=== PATIENT | male | born 1980 | race Caucasian/White ===

== ENCOUNTER 2018-11-28 08:27 | Outpatient (CLI) | payer OTHER ==
--- NOTE | 2018-11-28 15:28 | MRI Report ---
Reason: PAIN IN RIGHT KNEE Procedure Date: 11/28/2018 Accession Number: [id number] / [id number] Procedure: MRI - Knee RT W/O CPT Code: FULL RESULT: EXAM: RIGHT KNEE MRI WITHOUT CONTRAST EXAM DATE: 11/28/2018 09:39 AM. CLINICAL HISTORY: PAIN IN RIGHT KNEE. COMPARISON: None. TECHNIQUE: Multiplanar, multisequence T1-weighted and fluid-sensitive sequences of the knee without contrast. Other: None. FINDINGS: Bones: Focal subcortical marrow edema mid medial femoral condyle.. Articular Cartilage: Severe chondromalacia medial trochlear groove. Severe focal chondromalacia mid medial femoral condyle. Medial Meniscus: The medial meniscus is intact. Lateral Meniscus: The lateral meniscus is intact. Cruciate Ligaments: The anterior and posterior cruciate ligaments are intact. Collateral Ligaments: The medial collateral and lateral collateral ligamentous structures are intact. Tendons: The quadriceps, patellar, semimembranosus, and popliteus tendons are unremarkable. Musculature: No edema or fatty atrophy. Other: Small joint fluid medial lateral patellar recesses. Small fluid collection gastrocnemius semimembranosus bursa. Suprapatellar recess 1 cm osseous body. Lateral patellofemoral compartment osseous body 1.8 cm (image 31 series 401). Additional lateral patellofemoral compartment 5 mm osseous body. The medial and lateral retinacula are intact. The subcutaneous tissues and fat pads are unremarkable. IMPRESSION: 1. Negative for meniscus tear or internal derangement. 2. Severe chondromalacia medial trochlear groove and severe chondromalacia mid medial femoral condyle. 3. Multiple osseous bodies lateral patellofemoral compartment. [facility] MUSCULOSKELETAL RADIOLOGY SECTION
== END 2018-11-28 08:28 | disposition home or self-care (01) ==
LOC: DI 08:27
PROVIDERS: ATTEND General Practice
DX: M94.261 Chondromalacia, right knee (principal); M23.41 Loose body in knee, right knee

== ENCOUNTER 2019-01-04 08:58 | Day surgery (SDC) | payer OTHER ==
[~2019-01-04 08:58] MED LIST: ceFAZolin 2 GM/50 ML 2 GM/50 ML BAG IV ONE
[2019-01-04] MEDS ORDERED: LACTATED RINGERS 1,000 ML IV ONE (09:20)
--- NOTE | 2019-01-04 09:51 | ANESTHESIA ---
Pre-Anesthesia VS, & Labs - Diagnosis right knee loose bodies - Procedure right knee arthroscopy loose body removal Vital Signs: Temp Pulse Resp BP Pulse Ox 36.2 C L 105 H 16 139/95 H 97 01/04/19 09:14 01/04/19 09:14 01/04/19 09:14 01/04/19 09:14 01/04/19 09:14 Height 5 ft 7 in Weight (kg) 93 kg - NPO >8 hours Home Medications and Allergies Home Medications: Ambulatory Orders amLODIPine [Norvasc] 5 mg PO DAILY 12/26/18 raNITIdine [Zantac] 150 mg PO DAILY 12/26/18 amLODIPine [Norvasc] 5 mg PO DAILY 12/26/18 raNITIdine [Zantac] 150 mg PO DAILY 12/26/18 Allergies/Adverse Reactions: Allergies Allergy/AdvReac Type Severity Reaction Status Date / Time No Known Drug Allergies Allergy Verified 12/26/18 14:56 Anes History & Medical History - Anesthetic History Anesthesia Complications: reports: No previous complications - Medical History Cardiovascular: reports: Hypertension Pulmonary: reports: Sleep apnea, CPAP use Gastrointestinal: reports: GERD (controlled with medications) Urinary: reports: None Neuro: reports: None Musculoskeletal: reports: None, Other Endocrine/Autoimmune: reports: None Blood Disorders: reports: None Skin: reports: None Smoking Status: Former smoker (Quit 1 year ago) Psychosocial: reports: No issues indicated - Surgical History Orthopedic: Arthroscopic surgery Exam General: Alert, Oriented x3, Cooperative, No acute distress Dental: WNL Mouth Openin Fingerbreadth Neck Mobility: Normal Mallampati classification: II Thyromental Distance: 4-6 cm Respiratory: Lungs clear, Normal breath sounds, No respiratory distress, No accessory muscle use Cardiovascular: Regular rate, Normal S1, Normal S2, No murmurs Mental/Cognitive Status: Alert/Oriented X3, Normal for patient Plan Anesthesia Type: General Consent for Procedure(s) Verified and Reviewed: Yes Code Status: Attempt Resuscitation ASA classification: 2-Mild systemic disease Is this case an emergency?: No
[2019-01-04] MEDS ORDERED: EPINEPHrine 1 MG/ML AMP ONE (10:28)
[2019-01-04] MEDS ORDERED: BUPIVACAINE 0.25% PF 10 ML VIAL ONE (10:29)
[2019-01-04] MEDS ORDERED: BUPIVACAINE 0.25% PF 10 ML VIAL SUBQ ONE ×2 (11:15)
[2019-01-04] MEDS ORDERED: ONDANSETRON 4 MG/2 ML VIAL IVP ONE (11:30)
[2019-01-04] MEDS ORDERED: LIDOCAINE-MPF 2% 5 ML VIAL IM ONE (11:30)
[2019-01-04] MEDS ORDERED: CEFAZOLIN IV ONE (11:30)
[2019-01-04] MEDS ORDERED: fentaNYL 100 MCG/2 ML VIAL IVP ONE (11:30)
[2019-01-04] MEDS ORDERED: PROPOFOL 200 MG/20 ML VIAL IVP ONE (11:30)
[2019-01-04] MEDS ORDERED: KETOROLAC 30 MG/ML VIAL IVP ONE (11:30)
[2019-01-04] MEDS ORDERED: ONDANSETRON 4 MG/2 ML VIAL IVP PRN (12:46)
[2019-01-04] MEDS ORDERED: oxyCODONE 5 MG TABLET PO PRN (12:46)
--- NOTE | 2019-01-04 12:53 | OPERATIVE REPORT ---
Operative Report - General Planned Procedure: Right knee arthroscopy, Loose body removal Pre-Op Diagnosis: Right knee intra-articular loose bodies Procedure Performed: Right knee arthroscopy, trochlear chondroplasty, medial femoral condyle chondroplasty, loose body removal Post Op Diagnosis: Right knee loose bodies, medial femoral condyle & trochlear chondromalacia - Procedure Note Primary Surgeon: MITCHELL VILLA Secondary Surgeon: LONNY RAMIREZ Anesthesia Provider: Jen BURTON Anesthesia Technique: General ET tube Pathology: Right knee loose bodies sent for permanent pathology Estimated Blood Loss (mL): 5 - Other Other Information/Narrative: Procedure: Right knee chondroplasty Tourniquet: approximately 82 minutes, 250 mmHg, right thigh Right knee: 1. Patella: Generally normal, with a few scattered cracks 2. Trochlea: Diffuse grade 3, with some focal grade IV chondromalacia, status post debridement, the chondral lesion measured approximately 20 mm proximal to distal, and a proximally 10 mm medial to lateral 3. Medial Compartment: Diffuse grade IV chondromalacia, with exposed bone, the rim of cartilage was loose from the underlying bone and debrided to stable rim. The chondral loss encompassed most of the weightbearing surface into the medial edge of the intercondylar notch and PCL origin. Due to the location this chondral lesion was comma shaped: wider at the top where it projected into the superior portion of the notch and narrower along the medial femoral condyle. It measured approximately 15-17 mm medial lateral, and approximately 17-20 mm proximal to distal. 4. Lateral Compartment: Normal 5. ACL and PCL: Normal COMPLICATIONS: none IMPLANTS: None Indications for surgery: 37-year-old [id number] male who reports a long-standing history of right knee pain, worse over the last year. He described the pain as intermittent with variation from sharp and focal to more constant generalized dull ache following activity. He also reports some intermittent swelling of the anterolateral knee following activity. He reports grinding and catching but no loren locking. His knee occasionally gives way. He has a remote history of a right knee osteochondral lesion back in high school that was treated with microfracture per report. Radiographs and an MRI of the right knee demonstrated a large superior anterolateral calcified fragment, and smaller radiopaque masses in the suprapatellar pouch and intercondylar notch. These were felt to be consistent with loose bodies. There is also some increased bony edema in the medial femoral condyle with thinning of the cartilage, thought to be the sequela of the previously reported microfracture procedure. Based on his symptoms, as well as the imaging, right knee arthroscopy with loose body removal was recommended to prevent further third body wear to his right knee. The risks, benefits, and alternatives were discussed. Risks include pain, bleeding, infection, damage to nearby structures and cartilage, lack of symptom relief, need for further surgery, DVT, PE, stroke, and . Written consent was obtained. Procedure Details: The patient was met in the pre-operative hold area. We reviewed risks, benefits, and alternatives to surgery. Consent was signed. The patient verified the surgical site as the right knee. The patient then met with anesthesia and was brought back to the operating room. The patient was placed supine on the o perating table. General anesthesia was induced. A well-padded tourniquet was placed on the right thigh. The right lower extremity was then prepped and draped in the usual sterile fashion. A surgical timeout was then performed. The correct patient, the correct procedure, and the correct surgical site were confirmed by everyone in the room. Perioperative antibiotics had been administered. After surgical timeout and administration of antibiotics the Escmarch was used to exsanguinate the right lower extremity and the tourniquet was raised. An 11 blade scalpel was used to make an anterolateral arthroscopic portal. An anteromedial arthroscopic portal was created under direct visualization. The arthroscope was introduced into the knee and a diagnostic arthroscopy was performed with the above-stated findings. Using a combination of arthroscopic curettes, meniscal biters, and an arthroscopic sucker shaver a chondroplasty of the medial femoral condyle and trochlea was performed. The cartilage was debrided to a stable rim. There was a pedunculated loose body encased within the synovium around the medial border of the PCL. This was grasped with an arthroscopic grasper and rotated to truncate the stalk and removed from the knee without difficulty. The arthroscopic sucker shaver was used to trim the remaining loose synovial tissue. We next turned our attention to the superior lateral portion of the knee were 2 larger loose bodies were observed on initial diagnostic arthroscopy, and which concurred with the expected location based on preoperative imaging. The larger of the 2 visualized loose bodies was grasped with an arthroscopic grasper and moved to the front of the knee, the anterolateral portal was then enlarged with an 11 blade, and a Francisco J clamp was used to deliver the loose body from the joint. It measured approximately 2 cm in its longest dimension, consistent with the preoperative imaging. The second loose body in the superolateral knee was then removed using an arthroscopic grasper without difficulty. The knee was again explored, and the arthroscope was placed into the posterior lateral compartment, with no observed loose bodies. The instruments were then removed from the knee. The fluid drained, and the portals closed with buried 3-0 Monocryl and oversewn with 3-0 nylon. 20ml of 0.25% Marcaine plain was injected into the periarticular soft tissues. The incisions were dressed with Xeroform gauze, cotton gauze, an ABD. The tourniquet was lowered. The surgical drapes were removed. A STEVIE hose was placed on the leg. The patient was awoken from anesthesia, extubated, transferred to the hospital bed, and taken to the PACU for recovery, in good condition. Postoperative plan: 1. Discharge home from the same day surgery facility once the patient has met discharge criteria. 2. Advance weightbearing as tolerated, range of motion as tolerated, and wean from crutches as tolerated. 3. Return to clinic in 10-14 days for wound check. 4. Allow advancement of activities as tolerated with full clearance for all activities anticipated in 6-8 weeks postoperatively.
[2019-01-04 15:49] VITALS: BP 136/70
== END 2019-01-04 08:59 | disposition home or self-care (01) ==
LOC: SDS 08:58
PROVIDERS: ATTEND Orthopaedic Surgery
PROC: 0SBC4ZZ Excision of Right Knee Joint, Percutaneous Endoscopic Approach (ICD-10-PCS; 2019-01-04)
PROC: 0SCC4ZZ Extirpation of Matter from Right Knee Joint, Percutaneous Endoscopic Approach (ICD-10-PCS; principal; 2019-01-04 10:30)
DX: M23.41 Loose body in knee, right knee (principal); M94.261 Chondromalacia, right knee; G47.33 Obstructive sleep apnea (adult) (pediatric); I10 Essential (primary) hypertension; K21.9 Gastro-esophageal reflux disease without esophagitis; Z87.891 Personal history of nicotine dependence
CPT/HCPCS: 29877; J0690; J7120